=== PATIENT | male | born 1985 | race Two or more races ===

== ENCOUNTER 2021-05-11 02:01 | Emergency (ER) | payer SELFPAY ==
[~2021-05-11] VITALS: Ht 167.6 cm; Wt 68.0 kg
--- NOTE | 2021-05-11 02:20 | NUR ---
PT BIBA DUE TO AMS, FOUND IN THE ALLEY WITH 5 CANS OF BEER, PT CURRENTLY MUMBLING A/O X 1
--- NOTE | 2021-05-11 02:31 | NUR ---
ACCHCHECK BLOOD SUGAR 104
[2021-05-11] MEDS ORDERED: ONDANSETRON HCL/PF 4 MG/2 ML VIAL ONE (08:15)
[2021-05-11] MEDS ORDERED: KETOROLAC TROMETHAMINE INJ 30 MG/ML VIAL ONE (08:15)
[2021-05-11] MEDS ORDERED: MORPHINE SULFATE INJ 2 MG/ML DISP.SYRIN ONE (08:15)
[2021-05-11 09:29] VITALS: BP 111/56
== END 2021-05-11 09:30 | disposition home or self-care (01) ==
LOC: ER 02:04
DX: F10.129 Alcohol abuse with intoxication, unspecified (principal); Y90.9 Presence of alcohol in blood, level not specified; Z60.2 Problems related to living alone
CPT/HCPCS: 82962-TC; J1885; J2270; J2405